=== PATIENT | female | born 1990 | race Caucasian/White ===

== ENCOUNTER 2019-04-29 21:10 | Emergency (ER) | payer OTHER ==
[~2019-04-29] VITALS: Ht 167.6 cm; Wt 114.3 kg
[~2019-04-29 21:10] MED LIST: SULF1TAB24 PO
--- NOTE | 2019-04-29 21:17 | ED.ADGEN ---
Adult General Chief Complaint Chief Complaint ".. I was coming out of shower about 7 pm.. and it has sliding glass door.. .. and my Rt. dumbell nipple got caught on door,... and ripped out of my nipple..... .I just kept bleeding... " HPI HPI Patient is a 28 year old female who presents with above hx and complaints of ripping out dumbbell nipple stud on right. Patient has a 1 cm laceration across the middle of right nipple. Currently has adequate hemostasis. Patient's tetanus was updated 2 years ago. Nipple was cleaned and antibiotic applied with Band-Aid. Patient to take Tylenol and ibuprofen for pain. Follow-up primary care. Monitor for infection. Return if any concerns. Patient has no history immunosuppression. No history of travel. No specific ill contacts. Review of Systems Review of Systems Constitutional: Denies fever or chills [] Eyes: Denies change in visual acuity, redness, or eye pain [] HENT: Denies nasal congestion or sore throat [] Respiratory: Denies cough or shortness of breath [Pt. has]complaints of right nipple laceration Cardiovascular: No additional information not addressed in HPI [] GI: Denies abdominal pain, nausea, vomiting, bloody stools or diarrhea [] : Denies dysuria or hematuria [] Musculoskeletal: Denies back pain or joint pain [] Integument: Denies rash or skin lesions [] Neurologic: Denies headache, focal weakness or sensory changes [] Endocrine: Denies polyuria or polydipsia [] All other systems were reviewed and found to be within normal limits, except as documented in this note. Family History Family History Noncontributory Current Medications Current Medications Current Medications Medications (Trade) Dose Ordered Sig/Renea Start Time Stop Time Status Last Admin Dose Admin Bacitracin (Bacitracin Topical Pkt) 1 pkt 1X ONCE 04/29/19 23:00 04/29/19 23:01 DC 04/29/19 22:44 1 PKT Oxycodone/ Acetaminophen (Percocet 5/325) 2 tab 1X ONCE 04/29/19 23:00 04/29/19 23:01 DC 04/29/19 22:44 2 TAB Allergies Allergies Allergies Coded Allergies Type Severity Reaction Last Updated Verified No Known Drug Allergies 2/5/15 No Physical Exam Physical Exam Constitutional: Moderate acute distress, non-toxic appearance. [] HENT: Normocephalic, atraumatic, bilateral external ears normal, oropharynx moist, no oral exudates, nose normal. [] Eyes: PERRLA, EOMI, conjunctiva normal, no discharge. [] Neck: Normal range of motion, no tenderness, supple, no stridor. [] Cardiovascular:Heart rate regular rhythm, no murmur [] Lungs & Thorax: Bilateral breath sounds equal at apex with scattered wheezes on auscultation []has right nipple laceration 1 cm as per history of present illness Abdomen: Bowel sounds normal, soft, no tenderness, no masses, no pulsatile masses. [] Obese. Skin: Warm, dry, no erythema, no rash. [] Back: No tenderness, no CVA tenderness. [] Extremities: No tenderness, no cyanosis, no clubbing, ROM intact, no edema. [] Neurologic: Alert and oriented X 3, normal motor function, normal sensory function, no focal deficits noted. [] Psychologic: Affect anxious, judgement normal, mood normal. [] Current Patient Data Vital Signs Vital Signs Date Time Temp Pulse Resp B/P (MAP) Pulse Ox O2 Delivery O2 Flow Rate FiO2 04/29/19 22:44 18 97 EKG EKG [] Radiology/Procedures Radiology/Procedures [] Course & Med Decision Making Course & Med Decision Making Pertinent Labs and Imaging studies reviewed. (See chart for details) Nipple cleaned with peroxide and antibiotic ointment applied with Band-Aid. Patient take Tylenol and ibuprofen for pain. Follow-up primary care. Monitor for infection. Return if any concerns. Patient apply Polysporin to nipple 4 times a day. [] Final Impression Final Impression 1. Rt. Nipple laceration/ tear[] 1 cm Dragon Disclaimer Dragon Disclaimer This electronic medical record was generated, in whole or in part, using a voice recognition dictation system. Dragon Disclaimer This chart was dictated in whole or in part using Voice Recognition software in a busy, high-work load, and often noisy Emergency Department environment. It may contain unintended and wholly unrecognized errors or omissions. KIM TAYLOR MD Apr 29, 2019 21:17
[2019-04-29 22:20] VITALS: BP 146/101
[2019-04-29] MEDS ORDERED: oxyCODONE/APAP 5/325 1 TAB TABLET PO ONE (23:00)
[2019-04-29] MEDS ORDERED: BACITRACIN ZINC TOPICAL OINT PACKET. TP ONE (23:00)
== END 2019-04-29 22:45 | disposition home or self-care (01) ==
LOC: ER 21:10
DX: S21.011A Laceration without foreign body of right breast, initial encounter (principal); W26.8XXA Contact with other sharp object(s), not elsewhere classified, initial encounter; Y93.89 Activity, other specified; Y92.89 Other specified places as the place of occurrence of the external cause; Y99.8 Other external cause status
CPT/HCPCS: 99283